=== PATIENT | male | born 1960 | race Caucasian/White ===

== ENCOUNTER 2018-04-14 00:04 | Inpatient (IN) | payer OTHER ==
[~2018-04-14] VITALS: Ht 172.7 cm; Wt 102.1 kg
[2018-04-14 00:10] VITALS: BP 143/67
[2018-04-14 00:35] LABS: URINE BILIRUBIN NEGATIVE (Negative); URINE BLOOD NEGATIVE (Negative); URINE CLARITY CLEAR; URINE COLOR YELLOW; URINE GLUCOSE-RANDOM* NEGATIVE (Negative); URINE KETONES NEGATIVE (Negative); URINE PROTEIN (DIPSTICK) NEGATIVE (Negative); URINE SPECIFIC GRAVITY 1.015 (1.005-1.035)
[2018-04-14 00:35] LABS: ABSOLUTE NEUTROPHILS 10.5 thou/uL (1.4-8.2); BASOPHILS 0.8 % (0.0-2.0); EOSINOPHILS 3.1 % (0.0-3.0); HEMATOCRIT 45.8 % (42.0-52.0); HEMOGLOBIN 15.8 gm/dL (14.0-18.0); LYMPHOCYTES 18.5 % (24.0-44.0); MCH 30.8 pg (26.0-34.0); MCHC 34.5 g/dL (28.0-37.0); MCV 89.3 fL (80.0-100.0); MONOCYTES 6.1 % (1.0-8.0); PLATELET COUNT 179 thou/uL (150-400); POLYS 71.5 % (36.0-66.0); RBC 5.13 mil/uL (4.50-6.00); RDW 14.1 % (10.5-14.5); WBC 14.7 thou/uL (4.0-11.0)
[2018-04-14 00:36] LABS: URINE LEUKOCYTES NEGATIVE (Negative); URINE NITRITE NEGATIVE (Negative); URINE UROBILINOGEN 0.2 E.U./dl (0.2-1.0)
[2018-04-14 00:45] LABS: CALCIUM 9.6 mg/dL (8.5-10.1); CREATININE 1.2 mg/dL (0.7-1.3)
[2018-04-14 00:51] LABS: TOTAL BILIRUBIN 0.8 mg/dL (<0.1-1.0)
[2018-04-14 04:14] VITALS: BP 175/84
[2018-04-14] MEDS ORDERED: ASPIRIN81 M2 PO (04:42)
[2018-04-14] MEDS ORDERED: ISOSORBIDE MONO60 M1 PO (04:44)
[2018-04-14] MEDS ORDERED: PLAVIX 75 MG TA75 M1 PO (04:45)
[2018-04-14] MEDS ORDERED: PEPCID AC10 MG PO (04:46)
[2018-04-14] MEDS ORDERED: ATORVASTATIN CA40 MG PO (04:47)
[2018-04-14] MEDS ORDERED: COREG25 MG PO (04:47)
[2018-04-14] MEDS ORDERED: LISINOPRIL10 MG PO (04:48)
[2018-04-14 08:33] VITALS: BP 138/82
--- NOTE | 2018-04-14 13:55 | EKG ---
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 : 1960 Requested By: Brady Talbot Order Number: [id number] MD: Enrique Aquino Measurements Intervals [place] Rate: 115 P: OR: QRS: -51 QRSD: 169 T: 11 QT: 413 QTc: 572 Interpretive Statements Junctional tachycardia Left bundle branch block No previous ECG available for comparison Electronically Signed On 04-14-2018 13:55:14 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
[2018-04-14 14:59] VITALS: BP 108/71
[2018-04-14 19:01] VITALS: BP 101/66
--- NOTE | 2018-04-14 19:35 | NUR ---
ASSUMED CARE AT 0700, SHIFT ASSESSMENT DONE, NPO THIS AM. SEEN BY [facility] SURGERY, SBO RULED OUT. ADVANCED TO CLEAR LIQUIDS, TOLEARTING WELL. DENIES PAIN. VSS. HOME MEDS RESUMED. WILL CONTINUE TO ASSESS AND ASSIST WITH ADLs NEEDED.
--- NOTE | 2018-04-15 01:02 | NUR ---
PATIENT ASSESSED AND IS ALERT X 4. SKIN WARM AND DRY. RESP EVEN AND UNLABORED. IV SITE IN RIGHT HAND HEALTHY IN FUSING FLUIDS WELL. NO NAUSEA OR VOMITING NOTED. TAKES MEDS WELL. IV NS INFUSING WELL. VS STABLE. DENIES ANY PAIN. TELE- SHOWS NSR WITH BBB. NO SKIN ISSUES. SLEEPING AND WILL PROBABLY BD DC IN AM OR MONDAY. CONT PLAN OF CARE.
--- NOTE | 2018-04-15 01:05 | NUR ---
TAKING CLEAR LIQUIDS WELL. NO PROBLEMS STATED.
[2018-04-15 05:09] VITALS: BP 117/73
[2018-04-15 07:20] VITALS: BP 141/67
[2018-04-15 07:55] VITALS: BP 82/69
[2018-04-15 12:41] VITALS: BP 141/67
--- NOTE | 2018-04-15 13:43 | NUR ---
PT STABLE THROUGHOUT SHIFT. PT DISCHARGED HOME. PT GIVEN DC INSTRUCTIONS, HOME MEDS PICKED UP FROM PHARMACY. PT LEFT UNIT VIA WHEELCHAIR TO PRIVATE VEHICLE.
== END 2018-04-15 14:20 | disposition home or self-care (01) | DRG 389 ==
LOC: ER 00:04 → EROBS 03:24 → 4W 04:44
PROVIDERS: Emergency Medicine; ADMIT Hospitalist
DX: K56.609 Unspecified intestinal obstruction, unspecified as to partial versus complete obstruction (principal); I50.22 Chronic systolic (congestive) heart failure; I25.10 Atherosclerotic heart disease of native coronary artery without angina pectoris; J45.909 Unspecified asthma, uncomplicated; I11.0 Hypertensive heart disease with heart failure; E78.5 Hyperlipidemia, unspecified; F17.210 Nicotine dependence, cigarettes, uncomplicated; I44.7 Left bundle-branch block, unspecified; Z90.49 Acquired absence of other specified parts of digestive tract; Z95.5 Presence of coronary angioplasty implant and graft; I25.2 Old myocardial infarction; Z82.49 Family history of ischemic heart disease and other diseases of the circulatory system; Z80.8 Family history of malignant neoplasm of other organs or systems; Z79.82 Long term (current) use of aspirin; Z79.899 Other long term (current) drug therapy
CPT/HCPCS: 10045